=== PATIENT | female | born 1975 | race Caucasian/White ===

== ENCOUNTER 2017-05-13 22:21 | Emergency (ER) | payer OTHER ==
[~2017-05-13] VITALS: Ht 165.1 cm; Wt 88.5 kg
[2017-05-13 22:26] VITALS: BP 114/70
--- NOTE | 2017-05-13 23:50 | NUR ---
PT TAKEN TO BED 8
--- NOTE | 2017-05-13 23:55 | NUR ---
41Y F PRESENTS TO ER C/O OF PAIN TO CHEST AND LT SHOULDER. NO MEDICAL HX. PAIN IS 8/10 IN SCALE.
[2017-05-14] MEDS ORDERED: NITROGLYCERIN 2% 1 GM PKT TP ONE (00:10)
[2017-05-14] MEDS ORDERED: MORPHINE SULFATE 4 MG/ML SYR IVP ONE (00:10)
--- NOTE | 2017-05-14 00:14 | NUR ---
Dr. Luis evaluating patient at bedside.
[2017-05-14] MEDS ORDERED: KETOROLAC 60 MG/2 ML VIAL IM ONE (00:20)
[2017-05-14 00:40] VITALS: BP 101/67
== END 2017-05-14 00:40 | disposition home or self-care (01) ==
LOC: MED 22:21
DX: M94.0 Chondrocostal junction syndrome [Tietze] (principal); Z88.1 Allergy status to other antibiotic agents
CPT/HCPCS: 93005; 96372; 99283; J1885; J2270

== ENCOUNTER 2017-05-18 06:45 | Emergency (ER) | payer OTHER ==
[~2017-05-18] VITALS: Ht 152.4 cm; Wt 88.5 kg
[2017-05-18 06:53] VITALS: BP 119/76
[2017-05-18] MEDS ORDERED: NACL 0.9% 1,000 ML IV ONE (07:00)
[2017-05-18] MEDS ORDERED: KETOROLAC 30 MG/ML VIAL IVP ONE (07:00)
[2017-05-18] MEDS ORDERED: ONDANSETRON 4 MG/2 ML VIAL IVP ONE (07:00)
--- NOTE | 2017-05-18 07:07 | NUR ---
Patient ambulated to bed 04.
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
[2017-05-18 07:15] LABS: BASOPHILS # (AUTO) 0.1 K/uL (0.00-0.22); EOSINOPHILS # (AUTO) 0.2 K/uL (0-0.4); EOSINOPHILS % (AUTO) 1.7 % (0.0-4.0); HEMATOCRIT 37.1 % (36-48); HEMOGLOBIN 12.2 g/dL (12.0-16.0); LYMPHOCYTES # (AUTO) 1.2 K/uL (2.5-16.5); LYMPHOCYTES % (AUTO) 10.8 % (20.5-51.1); MEAN CORPUSCULAR HEMOGLOBIN 24 pg (27-31); MEAN CORPUSCULAR HGB CONC 33 g/dL (33-37); MEAN CORPUSCULAR VOLUME 73 fL (80-94); MONOCYTES # (AUTO) 0.5 K/uL (0.8-1.0); MONOCYTES % (AUTO) 4.4 % (1.7-9.3); NEUTROPHILS # (AUTO) 9.5 K/uL (1.8-7.7); NEUTROPHILS % (AUTO) 82.1 % (42.2-75.2); PLATELET COUNT (AUTO) 246 K/uL (140-450); RED BLOOD CELL COUNT(AUTO) 5.07 MIL/uL (4.20-5.40); RED CELL DISTRIBUTION WIDTH 15.9 % (11.6-13.7); WHITE BLOOD COUNT (AUTO) 11.5 K/uL (4.8-10.8)
[2017-05-18] MEDS ORDERED: SULFAMETH/TRIMETH DS 800/160MG 1 TAB PO ONE (07:25)
[2017-05-18] MEDS ORDERED: PHENAZOPYRIDINE 100 MG TAB PO ONE (07:30)
[2017-05-18 08:00] VITALS: BP 117/68
--- NOTE | 2017-05-18 08:00 | NUR ---
Patient discharged with v/s stable. Written and verbal after care instructions given and explained. Patient alert, oriented and verbalized understanding of instructions. Ambulatory with steady gait. All questions addressed prior to discharge. ID band removed. Patient advised to follow up with PMD. Rx of PHENAZOPYRIDINE HYDROCHLORIDE 200MG TAB & BACTRIM DS 800MG-160MG TAB given. Patient educated on indication of medication including possible reaction and side effects. Opportunity to ask questions provided and answered.
== END 2017-05-18 08:00 | disposition home or self-care (01) ==
LOC: MED 06:45
CPT/HCPCS: 36415; 81002; 81025; 85025; 93005; 99285

== ENCOUNTER 2017-11-06 09:33 | Emergency (ER) | payer OTHER ==
[~2017-11-06] VITALS: Ht 152.4 cm; Wt 87.5 kg
[2017-11-06 09:47] VITALS: BP 124/77
--- NOTE | 2017-11-06 11:09 | NUR ---
PATIENT PRESENTS TO ED C/O SUTURE RE-CHECK ON LEFT FINGERS.HX OF GASTRITIS;NO ERYTHEMA/INFLAMMATTION/DISCHARGES NOTED;MEDS: MOTRIN .DENIES N/V/D; SKIN IS PINK/WARM/DRY; AAOX4 WITH EVEN AND STEADY GAIT; LUNGS CLEAR BL; HR EVEN AND REGULAR; PT DENIES ANY FEVER, CP, SOB, OR COUGH AT THIS TIME; PATIENT STATES PAIN OF 6/10 AT THIS TIME;PATIENT POSITIONED FOR COMFORT; HOB ELEVATED; BEDRAILS UP X2; BED DOWN. ER MD MADE AWARE OF PT STATUS.
--- NOTE | 2017-11-06 11:22 | NUR ---
Patient discharged with v/s stable. Written and verbal after care instructions given and explained. Patient verbalized understanding. Ambulatory with steady gait. All questions addressed prior to discharge. Advised to follow up with PMD.
[2017-11-06 11:23] VITALS: BP 128/67
== END 2017-11-06 11:22 | disposition home or self-care (01) ==
LOC: MED 09:33
DX: S61.210D Laceration without foreign body of right index finger without damage to nail, subsequent encounter (principal); S61.212D Laceration without foreign body of right middle finger without damage to nail, subsequent encounter; Z90.49 Acquired absence of other specified parts of digestive tract; Z88.1 Allergy status to other antibiotic agents; Z88.8 Allergy status to other drugs, medicaments and biological substances; Z90.710 Acquired absence of both cervix and uterus; W23.0XXD Caught, crushed, jammed, or pinched between moving objects, subsequent encounter
CPT/HCPCS: 99281

== ENCOUNTER 2017-11-11 17:36 | Emergency (ER) | payer OTHER ==
[~2017-11-11] VITALS: Ht 152.4 cm; Wt 89.4 kg
[2017-11-11 18:05] VITALS: BP 128/78
--- NOTE | 2017-11-11 18:13 | NUR ---
PT TAKEN TO OVERFLOW CHAIR 2
--- NOTE | 2017-11-11 18:15 | NUR ---
PATIENT PRESENTS TO ED WITH SUTURE REMOVAL FROM RIGHT 2ND 3RD DIGIT HX: GASTRITIS ; DENIES N/V/D; SKIN IS PINK/WARM/DRY; AAOX4 WITH EVEN AND STEADY GAIT; LUNGS CLEAR BL; HR EVEN AND REGULAR; PT DENIES ANY FEVER, CP, SOB, OR COUGH AT THIS TIME; PATIENT STATES PAIN OF 4/10 AT THIS TIME; VSS; PATIENT PLACED ON OVER FLOW; ER MD MADE AWARE OF PT STATUS.
[2017-11-11 18:29] VITALS: BP 128/78
== END 2017-11-11 18:29 | disposition home or self-care (01) ==
LOC: MED 17:36
DX: S61.411D Laceration without foreign body of right hand, subsequent encounter (principal); R03.0 Elevated blood-pressure reading, without diagnosis of hypertension; Z88.1 Allergy status to other antibiotic agents; Z88.8 Allergy status to other drugs, medicaments and biological substances; X58.XXXD Exposure to other specified factors, subsequent encounter
CPT/HCPCS: 99283

== ENCOUNTER 2021-04-21 12:22 | Emergency (ER) | payer MEDICAID, OTHER ==
[~2021-04-21] VITALS: Ht 157.5 cm; Wt 69.9 kg
[2021-04-21 12:24] VITALS: BP 127/88
[2021-04-21] MEDS ORDERED: IBUPROFEN 600 MG TAB PO ONE (12:50)
[2021-04-21] MEDS ORDERED: HYDROcodone/APAP 5/325 MG 1 TAB TAB PO ONE (13:55)
[2021-04-21] MEDS ORDERED: IBUP-2213 PO (14:37)
[2021-04-21] MEDS ORDERED: ACET-8386 PO (14:37)
[2021-04-21 15:12] VITALS: BP 127/88
[2021-04-22] MEDS ORDERED: ONDA-24 SL (13:21)
== END 2021-04-21 15:01 | disposition home or self-care (01) ==
LOC: MED 12:22
DX: S52.501A Unspecified fracture of the lower end of right radius, initial encounter for closed fracture (principal); Z79.899 Other long term (current) drug therapy; Z88.1 Allergy status to other antibiotic agents; Z88.8 Allergy status to other drugs, medicaments and biological substances; W20.8XXA Other cause of strike by thrown, projected or falling object, initial encounter; Y93.89 Activity, other specified; Y92.89 Other specified places as the place of occurrence of the external cause; Y99.8 Other external cause status
CPT/HCPCS: 73020; 73100; 99284

== ENCOUNTER 2021-04-22 12:00 | Emergency (ER) | payer MEDICAID ==
[~2021-04-22] VITALS: Ht 160 cm; Wt 84.4 kg
[~2021-04-22 12:00] MED LIST: ACET-8386 PO; IBUP-2213 PO
[2021-04-22 12:04] VITALS: BP 145/77
--- NOTE | 2021-04-22 12:27 | NUR ---
Patient ambulated to bed 2. RN evaluating the patient at bedside.
--- NOTE | 2021-04-22 12:45 | NUR ---
45 y/o F brought in from home with c/c nausea x dizziness for one day after taking Bonnie. Patient was seen here yesterday for R arm fracture and discharged with Bonnie 5mg. Pt A&Ox4, ambulatory, states nausea + dizziness + blurry vision that increased this morning after taking Bonnie at 0500. Patient denies any syncope episode, headache, vomiting. Patient states pain at this time 7/10 to right arm. Patient is here requesting medication that does not make her nauseous. No other medical complaints. Bed locked in lowest position, side rails x1. PMH: Denies Meds: Bonnie 5/325, Ibuprofen Allergies: Rocephin, ampicillin, doxycycline Sx: Denies
--- NOTE | 2021-04-22 13:12 | NUR ---
CHAR Mendieta is evaluating the patient at bedside.
[2021-04-22] MEDS ORDERED: ONDA-24 SL (13:21)
[2021-04-22 13:44] VITALS: BP 145/77
--- NOTE | 2021-04-22 13:44 | NUR ---
Patient discharged with v/s stable. Written and verbal after care instructions given and explained. Patient alert, oriented and verbalized understanding of instructions. Ambulatory with steady gait. All questions addressed prior to discharge. ID band removed. Patient advised to follow up with PMD. Rx of Ondansetron given. Patient educated on indication of medication including possible reaction and side effects. Opportunity to ask questions provided and answered.
== END 2021-04-22 13:44 | disposition home or self-care (01) ==
LOC: MED 12:00
DX: R11.0 Nausea (principal); R42 Dizziness and giddiness; Z88.1 Allergy status to other antibiotic agents; Z88.8 Allergy status to other drugs, medicaments and biological substances; Z79.899 Other long term (current) drug therapy
CPT/HCPCS: 99283

== ENCOUNTER 2021-04-27 16:38 | Emergency (ER) | payer MEDICAID, OTHER ==
[~2021-04-27] VITALS: Ht 154.9 cm; Wt 83.5 kg
[~2021-04-27 16:38] MED LIST changes: +ONDA-24 SL
[2021-04-27 16:50] VITALS: BP 147/84
--- NOTE | 2021-04-27 16:54 | NUR ---
Patient ambulated to bed 6. RN evaluating the patient at bedside.
[2021-04-27] MEDS ORDERED: KETOROLAC 30 MG/ML VIAL IM ONE (17:00)
[2021-04-27] MEDS ORDERED: MAGNESIUM CITRATE 300 ML BTL PO ONE (17:00)
--- NOTE | 2021-04-27 17:18 | NUR ---
45/F presents to ED with c/o constipation x3 days. Patient states she recently had an arm injury and was prescribed [place]ced[place] for the pain. Patient states she has been unable to have a bowel movement the last three days she has been on [place]ced[place]. Patient denies nausea and vomiting, denies dysuria and hematuria.
[2021-04-27 17:27] VITALS: BP 147/84
[2021-04-28] MEDS ORDERED: NAPR-54 PO (19:44)
[2021-04-28] MEDS ORDERED: ACET-2619 PO (19:44)
== END 2021-04-27 17:26 | disposition home or self-care (01) ==
LOC: MED 16:38
DX: K59.00 Constipation, unspecified (principal); Z88.1 Allergy status to other antibiotic agents; Z88.8 Allergy status to other drugs, medicaments and biological substances; Z79.899 Other long term (current) drug therapy; Z98.890 Other specified postprocedural states
CPT/HCPCS: 96372; 99283; J1885

== ENCOUNTER 2021-04-28 19:08 | Emergency (ER) | payer OTHER ==
[~2021-04-28] VITALS: Ht 154.9 cm; Wt 83.9 kg
[2021-04-28 19:20] VITALS: BP 161/90
--- NOTE | 2021-04-28 19:20 | NUR ---
TO BED AMBULATORY
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
[2021-04-28] MEDS ORDERED: KETOROLAC 60 MG/2 ML VIAL IM ONE (19:40)
[2021-04-28] MEDS ORDERED: ACET-2619 PO (19:44)
[2021-04-28] MEDS ORDERED: NAPR-54 PO (19:44)
--- NOTE | 2021-04-28 20:04 | NUR ---
Patient discharged with v/s stable. Written and verbal after care instructions given and explained. Patient alert, oriented and verbalized understanding of instructions. Ambulatory with steady gait. All questions addressed prior to discharge. ID band removed. Patient advised to follow up with PMD. Rx of TYLENOL AND NAPROSYN given. Patient educated on indication of medication including possible reaction and side effects. Opportunity to ask questions provided and answered.
[2021-04-28 20:06] VITALS: BP 161/90
== END 2021-04-28 20:04 | disposition home or self-care (01) ==
LOC: MED 19:08
DX: S52.135D Nondisplaced fracture of neck of left radius, subsequent encounter for closed fracture with routine healing (principal); K59.00 Constipation, unspecified; Z88.0 Allergy status to penicillin; Z88.1 Allergy status to other antibiotic agents; Z79.899 Other long term (current) drug therapy
CPT/HCPCS: 96372; 99283; J1885

== ENCOUNTER 2021-05-05 06:15 | Emergency (ER) | payer OTHER ==
[~2021-05-05] VITALS: Ht 157.5 cm; Wt 84.4 kg
[~2021-05-05 06:15] MED LIST changes: +ACET-2619 PO; -IBUP-2213 PO; +NAPR-54 PO
[2021-05-05 06:18] VITALS: BP 127/78
[2021-05-05] MEDS ORDERED: KETOROLAC 30 MG/ML VIAL IM ONE (07:25)
[2021-05-05] MEDS ORDERED: ACET-5629 PO (07:50)
[2021-05-05] MEDS ORDERED: DOCU-299 PO (08:01)
[2021-05-05 08:07] VITALS: BP 127/78
== END 2021-05-05 08:06 | disposition home or self-care (01) ==
LOC: MED 06:15
DX: S52.501D Unspecified fracture of the lower end of right radius, subsequent encounter for closed fracture with routine healing (principal); Z88.1 Allergy status to other antibiotic agents; Z88.5 Allergy status to narcotic agent; X58.XXXD Exposure to other specified factors, subsequent encounter
CPT/HCPCS: 96372; 99283; J1885

== ENCOUNTER 2022-02-21 16:29 | Emergency (ER) | payer OTHER ==
[~2022-02-21] VITALS: Ht 154.9 cm; Wt 83.0 kg
[~2022-02-21 16:29] MED LIST changes: +ACET-5629 PO; +DOCU-299 PO; +ONDA-188 SL; -ONDA-24 SL
[2022-02-21 16:32] VITALS: BP 157/92
[2022-02-21] MEDS ORDERED: CYCLOBENZAPRINE 10 MG TAB PO ONE (16:55)
[2022-02-21] MEDS ORDERED: KETOROLAC 30 MG/ML VIAL IM ONE (16:55)
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
--- NOTE | 2022-02-21 16:56 | NUR ---
CHAR Hudson at bedside evaluating patient.
--- NOTE | 2022-02-21 16:59 | NUR ---
Radiology taking patient via wheelchair for exam.
[2022-02-21] MEDS ORDERED: LIDO1ADH47 TP (17:41)
[2022-02-21] MEDS ORDERED: NAPR-54 PO (17:41)
[2022-02-21] MEDS ORDERED: CYCL-711 PO (17:41)
--- NOTE | 2022-02-21 17:47 | NUR ---
CHAR Hudson at bedside re-evaluating patient.
[2022-02-21 18:06] VITALS: BP 157/92
--- NOTE | 2022-02-21 18:06 | NUR ---
Patient discharged with v/s stable. Written and verbal after care instructions given. Patient alert, oriented and verbalized understanding of instructions. Ambulatory with steady gait. All questions addressed prior to discharge. ID band removed. Patient advised to follow up with PMD. Rx of Cyclobenzaprine HCl, Lidocaine and Naproxen given. Opportunity to ask questions provided and answered.
--- NOTE | 2022-02-21 18:12 | NUR ---
The patient's care was reviewed and supervised by Lori Oseguera RN.
== END 2022-02-21 18:06 | disposition home or self-care (01) ==
LOC: MED 16:29
DX: M54.2 Cervicalgia (principal); M25.511 Pain in right shoulder; R07.9 Chest pain, unspecified; Z98.890 Other specified postprocedural states; Z79.899 Other long term (current) drug therapy; Z88.0 Allergy status to penicillin; Z88.1 Allergy status to other antibiotic agents; Z88.8 Allergy status to other drugs, medicaments and biological substances; V89.2XXA Person injured in unspecified motor-vehicle accident, traffic, initial encounter; Y93.89 Activity, other specified; Y92.89 Other specified places as the place of occurrence of the external cause; Y99.8 Other external cause status
CPT/HCPCS: 71045; 72050; 73030; 96372; 99284; J1885